=== PATIENT | female | born 1950 | race Caucasian/White ===

== ENCOUNTER 2018-06-18 22:33 | Observation (INO) | payer MEDICARE ==
[~2018-06-18] VITALS: Ht 162.6 cm; Wt 85.8 kg
[2018-06-18] MEDS ORDERED: ASPIRIN 81 MG TABLET CHEW PO ONE (23:00)
[2018-06-18 23:04] LABS: MEAN CORPUSCULAR HEMOGLOBIN 21.2 pg (27.0-34.8); MEAN CORPUSCULAR HGB CONC 31.4 g/dL (32.4-35.8); MEAN CORPUSCULAR VOLUME 67.4 fL (80-100); MEAN PLATELET VOLUME 7.4 fL (7.4-10.4); PLATELET COUNT 555 x10^3/uL (130-400); RED BLOOD COUNT 4.41 x10^6/uL (3.82-5.3); RED CELL DISTRIBUTION WIDTH 20.2 % (9.6-15.2)
[2018-06-18 23:17] LABS: ALANINE AMINOTRANSFERASE 24 U/L (12-78); ALBUMIN 3.5 g/dL (3.4-5.0); ANION GAP 8 mmol/L (5-15); CALCIUM 10.3 mg/dL (8.5-10.1); CHLORIDE 105 mmol/L (98-107)
[2018-06-18 23:21] LABS: ALKALINE PHOSPHATASE 99 U/L (45-117); BILIRUBIN,TOTAL 0.3 mg/dL (0.2-1.0); TOTAL PROTEIN 7.3 g/dL (6.4-8.2); TROPONIN I < 0.015 ng/mL (0.000-0.045)
[2018-06-18] MEDS ORDERED: ASPIRIN 81 MG TABLET CHEW ONE (23:22)
[2018-06-18 23:30] LABS: BASOPHILS # (AUTO) 0.09 x10^3/uL (0-0.1); BASOPHILS % (AUTO) 1 % (0-1); EOSINOPHILS # (AUTO) 0.32 x10^3/uL (0-0.4); EOSINOPHILS % (AUTO) 3 % (1-7); LYMPHOCYTES % (AUTO) 24 % (22-44); MD SCAN; MONOCYTES # (AUTO) 1.65 x10^3/uL (0.2-0.8); MONOCYTES % (AUTO) 13 % (2-9); NEUTROPHILS # (AUTO) 7.85 x10^3/uL (1.8-6.8); NEUTROPHILS % (AUTO) 60 % (42-75)
[2018-06-18] MEDS ORDERED: HYDR25TA6 PO (23:31)
[2018-06-18] MEDS ORDERED: PARO20TA4 PO (23:31)
[2018-06-18] MEDS ORDERED: ALBU8.5H8 INH (23:31)
[2018-06-18] MEDS ORDERED: PANT40TA5 PO (23:31)
[2018-06-18] MEDS ORDERED: SUMA100T4 PO (23:31)
[2018-06-18] MEDS ORDERED: AMLO5TAB7 PO (23:31)
[2018-06-19] MEDS ORDERED: ONDANSETRON ODT 4 MG PO PRN (00:30)
[2018-06-19] MEDS ORDERED: hydrALAzine 20 MG/ML, 1ML IVPush PRN (00:30)
[2018-06-19] MEDS ORDERED: ENOXAPARIN 40 MG/0.4 ML SQ SCH (00:30)
[2018-06-19] MEDS ORDERED: TEMAZEPAM 15 MG CAPSULE PO PRN (00:30)
[2018-06-19] MEDS ORDERED: DOCUSATE 100 MG CAPSULE PO PRN (00:30)
[2018-06-19] MEDS ORDERED: LIDODERM 5% PATCH TD PRN (00:30)
[2018-06-19] MEDS ORDERED: KETOROLAC 30 MG/1 ML IV PRN (00:30)
[2018-06-19] MEDS ORDERED: NITROGLYCERIN 0.4 MG BOTTLE (25 TABS) SL PRN (00:30)
[2018-06-19] MEDS ORDERED: ACETAMINOPHEN 325 MG TABLET PO PRN (00:30)
[2018-06-19 01:01] VITALS: BP 126/90
[2018-06-19 01:28] VITALS: BP 126/90
[2018-06-19 05:46] LABS: TROPONIN I < 0.015 ng/mL (0.000-0.045)
[2018-06-19 08:00] VITALS: BP 100/70
[2018-06-19] MEDS ORDERED: PANTOPROZOLE 40MG TABLET PO SCH (09:00)
[2018-06-19] MEDS ORDERED: AMLODIPINE 5 MG TABLET PO SCH (09:00)
[2018-06-19] MEDS ORDERED: PAROXETINE 20 MG TABLET PO SCH (09:00)
[2018-06-19] MEDS ORDERED: HYDROCHLOROTHIAZIDE 25 MG TABLET PO SCH (09:00)
[2018-06-19] MEDS ORDERED: REGADENOSON 0.4 MG/5 ML SYRINGE ONE (09:42)
[2018-06-19 12:05] VITALS: BP 103/72
[2018-06-19 12:27] LABS: BASOPHILS # (AUTO) 0.07 x10^3/uL (0-0.1); BASOPHILS % (AUTO) 1 % (0-1); EOSINOPHILS # (AUTO) 0.14 x10^3/uL (0-0.4); EOSINOPHILS % (AUTO) 2 % (1-7); LYMPHOCYTES # (AUTO) 2.13 x10^3/uL (1-3.4); LYMPHOCYTES % (AUTO) 24 % (22-44); MD NO; MEAN CORPUSCULAR HEMOGLOBIN 21.1 pg (27.0-34.8); MEAN CORPUSCULAR HGB CONC 31.1 g/dL (32.4-35.8); MEAN CORPUSCULAR VOLUME 67.7 fL (80-100); MEAN PLATELET VOLUME 7.5 fL (7.4-10.4); MONOCYTES # (AUTO) 1.43 x10^3/uL (0.2-0.8); MONOCYTES % (AUTO) 16 % (2-9); NEUTROPHILS # (AUTO) 5.21 x10^3/uL (1.8-6.8); NEUTROPHILS % (AUTO) 58 % (42-75); PLATELET COUNT 532 x10^3/uL (130-400); RED BLOOD COUNT 4.35 x10^6/uL (3.82-5.3)
[2018-06-19 12:34] LABS: CHLORIDE 105 mmol/L (98-107)
[2018-06-19 12:46] LABS: % IRON SATURATION 5 % (20-55); ANION GAP 8 mmol/L (5-15); CALCIUM 9.4 mg/dL (8.5-10.1); CREATININE 0.85 mg/dL (0.55-1.02); IRON LEVEL 22 mcg/dL (50-170); TOTAL IRON BINDING CAPACITY 452 mcg/dL (250-450); TRANSFERRIN 290 mg/dL (200-360); TROPONIN I < 0.015 ng/mL (0.000-0.045)
[2018-06-19 14:05] VITALS: BP 105/72
[2018-06-19 14:18] LABS: HCT (SEDRATE) 29.5 % (34.6-47.8)
== END 2018-06-19 15:15 | disposition left against medical advice (07) ==
LOC: ED 23:11 → INTOOBSV 06-19 00:07 → EDIP 06-19 00:07 → 4WST 06-19 00:53
PROVIDERS: ADMIT Internal Medicine; ATTEND Internal Medicine
DX: R07.89 Other chest pain (principal); K21.9 Gastro-esophageal reflux disease without esophagitis; F33.0 Major depressive disorder, recurrent, mild; D50.9 Iron deficiency anemia, unspecified; E66.01 Morbid (severe) obesity due to excess calories; I10 Essential (primary) hypertension; J44.9 Chronic obstructive pulmonary disease, unspecified; K44.9 Diaphragmatic hernia without obstruction or gangrene; R73.03 Prediabetes; E87.6 Hypokalemia; Z53.21 Procedure and treatment not carried out due to patient leaving prior to being seen by health care provider; Z68.32 Body mass index [BMI] 32.0-32.9, adult; Z80.0 Family history of malignant neoplasm of digestive organs; Z88.7 Allergy status to serum and vaccine
CPT/HCPCS: 36415; 71045; 78452; 80048; 80053; 82728; 83540; 83550; 83735; 83880; 84466; 84484; 85025; 85651; 86140; 93005; 93017; 93306; 96372; 99285; A9502; C9898; G0378; J1650; J2785

== ENCOUNTER 2020-04-22 19:41 | Emergency (ER) | payer MEDICARE ==
[~2020-04-22] VITALS: Ht 162.6 cm; Wt 97.0 kg
[~2020-04-22 19:41] MED LIST: ALBU8.5H8 INH; AMLO-150 PO; HYDR25TA6 PO; PANT40TA6 PO; PARO20TA4 PO; SUMA100T4 PO
[2020-04-22 19:47] VITALS: BP 139/73
--- NOTE | 2020-04-22 20:05 | NUR ---
PT RESTING IN GOWN IN [facility]. PT ATTACHED TO VS MONITORS. VSS AT THIS TIME. AWAITING ERP. PT EDUCATED ON ER PROCESS AND VERBALIZES UNDERSTANDING. PT TALKING IN COMPLETE SENTENCES WITH NO UPPER AIRWAY IMPAIRMENT NOTED AT THIS TIME.
--- NOTE | 2020-04-22 21:28 | NUR ---
Jeffery from [facility] called in per Dr. Hooker.
[2020-04-22] MEDS ORDERED: PROPOFOL 10 MG/ML, 20ML ONE (22:09)
[2020-04-22] MEDS ORDERED: FENTANYL PF 100 MCG/2ML ONE (22:16)
--- NOTE | 2020-04-22 23:37 | NUR ---
Note donayue in [facility] - 04/22/20 at 2338 by LOWELL PT RECEIVED A TOTAL OF 360 MG OF PROPOFOL DURING PROCEDURE DUE TO COMPLICATIONS OF FB REMOVAL. PT TOLERATED PROCEDURE WELL. PT RECOVERING IN [facility] AND IS AWAKE AND ORIENTED X 4. PT ATTACHED TO VS AND CARDIAC MONITORS. VSS. PT HAS CALL LIGHT WITHIN REACH AT THIS TIME.
--- NOTE | 2020-04-22 23:38 | NUR ---
PT RECEIVED A TOTAL OF 360 MG OF PROPOFOL DURING PROCEDURE DUE TO COMPLICATIONS OF FB REMOVAL. PT TOLERATED PROCEDURE WELL. PT RECOVERING IN [facility] AND IS AWAKE AND ORIENTED X 4. PT ATTACHED TO VS AND CARDIAC MONITORS. VSS. PT HAS CALL LIGHT WITHIN REACH AT THIS TIME.
--- NOTE | 2020-04-22 23:40 | NUR ---
Assist RN: Patient recovered fully. Patient vitals stable without O2. AAOx4, GCS 15. Patient ambulatory with a steady gait. Discharge instructions given. All questions and concerns addressed. Belongings with patient.
== END 2020-04-22 23:43 | disposition home or self-care (01) ==
LOC: ED 23:30
DX: T18.128A Food in esophagus causing other injury, initial encounter (principal); I10 Essential (primary) hypertension; J45.909 Unspecified asthma, uncomplicated; K21.9 Gastro-esophageal reflux disease without esophagitis; X58.XXXA Exposure to other specified factors, initial encounter; Y93.89 Activity, other specified; Y92.89 Other specified places as the place of occurrence of the external cause; Y99.8 Other external cause status
CPT/HCPCS: 99152; 99153; 99285

== ENCOUNTER → 2020-07-23 | Outpatient (CLI) | payer MEDICARE ==
[~2020-07-23] MED LIST changes: +ARIP2TAB2 PO; +CELEBREX PO; +OXYCONTIN PO; +PLAQUENIL PO; +[UNRECOGNIZED DRUG - OTHER]; +iron PO; +vitamin C PO
[2020-07-23 17:07] LABS: BASOPHILS % (AUTO) 1 % (0-1); EOSINOPHILS % (AUTO) 3 % (1-7); LYMPHOCYTES % (AUTO) 33 % (22-44); MEAN CORPUSCULAR HEMOGLOBIN 27.9 pg (27.0-34.8); MEAN CORPUSCULAR HGB CONC 31.8 g/dL (32.4-35.8); MEAN PLATELET VOLUME 7.5 fL (7.4-10.4); MONOCYTES % (AUTO) 16 % (2-9); NEUTROPHILS % (AUTO) 48 % (42-75); PLATELET COUNT 353 x10^3/uL (130-400); RED BLOOD COUNT 4.59 x10^6/uL (3.82-5.3); RED CELL DISTRIBUTION WIDTH 17.5 % (9.6-15.2)
[2020-07-23 17:11] LABS: MD NO
[2020-07-23 17:13] LABS: ALANINE AMINOTRANSFERASE 20 U/L (12-78); ALBUMIN 3.9 g/dL (3.4-5.0); ANION GAP 5 mmol/L (5-15); CALCIUM 9.8 mg/dL (8.5-10.1); CHLORIDE 98 mmol/L (98-107)
[2020-07-23 17:20] LABS: ALKALINE PHOSPHATASE 129 U/L (45-117); BILIRUBIN,TOTAL 0.5 mg/dL (0.2-1.0); CREATININE 0.77 mg/dL (0.55-1.02); TOTAL PROTEIN 7.4 g/dL (6.4-8.2)
== END | disposition home or self-care (01) ==
LOC: STAR 15:13
PROVIDERS: ATTEND Orthopaedic Surgery
DX: Z01.818 Encounter for other preprocedural examination (principal); Z20.828 Contact with and (suspected) exposure to other viral communicable diseases; M17.11 Unilateral primary osteoarthritis, right knee
CPT/HCPCS: 36415; 80053; 85025; 87081; 87635; 93005

== ENCOUNTER 2020-07-26 14:39 | Emergency (ER) | payer MEDICARE ==
[~2020-07-26] VITALS: Ht 162.6 cm; Wt 94.9 kg
[~2020-07-26 14:39] MED LIST changes: -CELEBREX PO; -OXYCONTIN PO; -PLAQUENIL PO
[2020-07-26] MEDS ORDERED: SODIUM CHLORIDE FLUSH 10ML SYR IVF ONE (15:00)
--- NOTE | 2020-07-26 15:01 | NUR ---
PT SITTING UP IN BED WATCHING TELEVISION. NAD NOTED AT THIS TIME. RESPIRATIONS EVEN AND UNLABORED ON RA. SIDE RAILS UP, CALL LIGHT IN REACH. AWAITING FURTHER ORDERS.
[2020-07-26 15:14] LABS: BASOPHILS % (AUTO) 1 % (0-1); EOSINOPHILS % (AUTO) 4 % (1-7); LYMPHOCYTES % (AUTO) 27 % (22-44); MEAN CORPUSCULAR HEMOGLOBIN 28.8 pg (27.0-34.8); MEAN CORPUSCULAR HGB CONC 32.8 g/dL (32.4-35.8); MEAN PLATELET VOLUME 7.8 fL (7.4-10.4); MONOCYTES % (AUTO) 14 % (2-9); NEUTROPHILS % (AUTO) 54 % (42-75); PLATELET COUNT 349 x10^3/uL (130-400); RED BLOOD COUNT 4.53 x10^6/uL (3.82-5.3); RED CELL DISTRIBUTION WIDTH 17.2 % (9.6-15.2)
[2020-07-26 15:24] LABS: ALBUMIN 3.7 g/dL (3.4-5.0); ANION GAP 7 mmol/L (5-15); CALCIUM 10.1 mg/dL (8.5-10.1); CHLORIDE 104 mmol/L (98-107); CREATININE 0.79 mg/dL (0.55-1.02)
[2020-07-26 15:35] LABS: MD SCAN
--- NOTE | 2020-07-26 15:58 | NUR ---
UPON ENTRY TO ROOM FOR MED ADMINISTRATION AND DC, PT REQUESTS CELL PHONE TO MAKE IMMEDIATE PHONE CALL.
[2020-07-26] MEDS ORDERED: POTASSIUM CHLORIDE 10% 40 MEQ/30 ML UDC PO ONE (16:00)
[2020-07-26] MEDS ORDERED: POTASSIUM CHLORIDE 20 MEQ PACKET ONE (16:03)
[2020-07-26 16:19] VITALS: BP 139/71
[2020-07-27] MEDS ORDERED: CELEBREX PO (06:12)
[2020-07-27] MEDS ORDERED: OXYCONTIN PO (06:12)
[2020-07-27] MEDS ORDERED: PLAQUENIL PO (06:37)
== END 2020-07-26 16:36 | disposition home or self-care (01) ==
LOC: ED 15:22
DX: E87.6 Hypokalemia (principal); I44.0 Atrioventricular block, first degree; I10 Essential (primary) hypertension; J45.909 Unspecified asthma, uncomplicated
CPT/HCPCS: 36415; 80048; 82040; 83735; 85025; 93005; 99284; 99285

== ENCOUNTER 2020-07-27 05:21 | Observation (INO) | payer MEDICARE ==
[~2020-07-27] VITALS: Ht 162.6 cm; Wt 93.5 kg
[2020-07-27] MEDS ORDERED: CELEBREX PO (06:12)
[2020-07-27] MEDS ORDERED: OXYCONTIN PO (06:12)
[2020-07-27] MEDS ORDERED: CHLORHEXIDINE 15 ML UDC MM ONE (06:30)
[2020-07-27] MEDS ORDERED: TRANEXAMIC ACID 100 MG/ML, 10ML ONE (06:35)
[2020-07-27] MEDS ORDERED: KETOROLAC 60 MG/2 ML ONE (06:35)
[2020-07-27] MEDS ORDERED: SODIUM CHLORIDE 0.9% 50 ML ONE (06:36)
[2020-07-27] MEDS ORDERED: EPINEPHRINE 1 MG/ML, 1ML ONE (06:36)
[2020-07-27] MEDS ORDERED: VANCOMYCIN 1,000 MG ONE (06:36)
[2020-07-27] MEDS ORDERED: ROPIvacaine/PF 0.2%, 20 ML ONE (06:36)
[2020-07-27] MEDS ORDERED: morphine SULFATE/PF 1 MG/ML, 10ML ONE (06:36)
[2020-07-27] MEDS ORDERED: METHYLENE BLUE 50 MG/10 ML AMP ONE (06:36)
[2020-07-27] MEDS ORDERED: PLAQUENIL PO (06:37)
[2020-07-27] MEDS ORDERED: ACETAMINOPHEN 500 MG TABLET ONE (06:42)
[2020-07-27 06:54] LABS: ANION GAP 6 mmol/L (5-15); CALCIUM 9.8 mg/dL (8.5-10.1); CHLORIDE 109 mmol/L (98-107); CREATININE 0.78 mg/dL (0.55-1.02)
[2020-07-27] MEDS ORDERED: MIDAZOLAM 1 MG/ML, 2ML ONE (06:56)
[2020-07-27] MEDS ORDERED: FENTANYL PF 250 MCG/5ML ONE (06:56)
[2020-07-27] MEDS ORDERED: ACETAMINOPHEN 500 MG TABLET PO ONE (07:00)
[2020-07-27] MEDS ORDERED: LACTATED RINGERS 1,000 ML IV SCH (07:00)
[2020-07-27] MEDS ORDERED: MEPERIDINE/PF 25MG/0.5ML IVPush PRN (08:30)
[2020-07-27] MEDS ORDERED: hydrALAzine 20 MG/ML, 1ML IV PRN (08:30)
[2020-07-27] MEDS ORDERED: OXYcodone 5 MG/5 ML ORAL.SOL UDC PO PRN (08:30)
[2020-07-27] MEDS ORDERED: HYDROmorphone 2 MG/ML, 1ML IVPush PRN (08:30)
[2020-07-27] MEDS ORDERED: LABETALOL 5MG/ML, 20ML IV PRN (08:30)
[2020-07-27] MEDS ORDERED: KETOROLAC 30 MG/1 ML IV PRN (08:30)
[2020-07-27] MEDS ORDERED: ALBUTEROL SULFATE 2.5 MG/3 ML NPPB PRN (08:30)
[2020-07-27] MEDS ORDERED: DIAZEPAM 5 MG/ML, 2ML IVPush PRN (08:30)
[2020-07-27] MEDS ORDERED: ACETAMINOPHEN 325 MG TABLET PO PRN (08:30)
[2020-07-27] MEDS ORDERED: PROMETHAZINE 25 MG/ML, 1ML IV PRN (08:30)
[2020-07-27] MEDS ORDERED: FENTANYL PF 100 MCG/2ML ONE (09:20)
[2020-07-27] MEDS: FENTANYL PF 100 MCG/2ML IV PRN ×3 (09:23→09:44)
[2020-07-27] MEDS ORDERED: OXYcodone 5 MG/5 ML ORAL.SOL UDC ONE (09:35)
[2020-07-27] MEDS ORDERED: KETOROLAC 30 MG/1 ML ONE (09:45)
[2020-07-27] MEDS ORDERED: NEOSTIGMINE 1 MG/ML, 10ML ONE (09:46)
[2020-07-27] MEDS ORDERED: DEXAMETHASONE 4 MG/ML, 1ML ONE (09:46)
[2020-07-27] MEDS ORDERED: PROPOFOL 10 MG/ML, 20ML ONE (09:46)
[2020-07-27] MEDS ORDERED: ROCURONIUM 10MG/ML,5ML ONE (09:46)
[2020-07-27] MEDS ORDERED: ONDANSETRON 2MG/ML, 2ML ONE (09:46)
[2020-07-27] MEDS ORDERED: SUCCINYLCHOLINE 20 MG/ML, 10ML ONE (09:46)
[2020-07-27] MEDS ORDERED: GLYCOPYRROLATE 0.2MG/1ML, 5ML ONE (09:46)
[2020-07-27] MEDS ORDERED: CEFAZOLIN 1,000 MG ONE (09:46)
[2020-07-27] MEDS ORDERED: ONDANSETRON 2MG/ML, 2ML IVPush PRN (11:00)
[2020-07-27] MEDS ORDERED: DIPHENHYDRAMINE 25 MG CAPSULE PO PRN (11:00)
[2020-07-27] MEDS: ACETAMINOPHEN 500 MG TABLET PO SCH ×3 (11:46→23:16)
[2020-07-27] MEDS ORDERED: SUMATRIPTAN 100 MG TABLET PO PRN (12:00)
[2020-07-27] MEDS: POTASSIUM CHLORIDE 10 MEQ in D5%-0.45% NACL 1,000 ML IV SCH (13:49)
[2020-07-27] MEDS: CEFAZOLIN PMX 1GM/50ML 50 ML IVPB SCH ×2 (15:43→23:16)
[2020-07-27] MEDS: KETOROLAC 30 MG/1 ML IVPush SCH (17:09)
[2020-07-27] MEDS: PANTOPRAZOLE 40MG TABLET PO SCH (17:10)
[2020-07-27] MEDS: ASPIRIN 81 MG TABLET EC PO SCH (17:10)
[2020-07-27 17:27] VITALS: BP 132/77
[2020-07-27 19:46] VITALS: BP 118/77
[2020-07-27] MEDS ORDERED: GABAPENTIN 300 MG CAPSULE PO SCH (21:00)
[2020-07-28 00:41] VITALS: BP 111/73
[2020-07-28] MEDS: KETOROLAC 30 MG/1 ML IVPush SCH (02:43)
[2020-07-28 04:54] VITALS: BP 115/70
[2020-07-28] MEDS: ACETAMINOPHEN 500 MG TABLET PO SCH ×2 (05:40→12:57)
[2020-07-28] MEDS: ASPIRIN 81 MG TABLET EC PO SCH (05:40)
[2020-07-28] MEDS: POTASSIUM CHLORIDE 10 MEQ in D5%-0.45% NACL 1,000 ML IV SCH (05:40)
[2020-07-28] MEDS: PANTOPRAZOLE 40MG TABLET PO SCH (05:40)
[2020-07-28 06:49] VITALS: BP 110/74
[2020-07-28] MEDS ORDERED: ALBUTEROL HFA 90 MCG/SPRAY INH SCH (09:00)
[2020-07-28] MEDS ORDERED: HYDROXYCHLOROQUINE 200 MG TABLET PO SCH (09:00)
[2020-07-28] MEDS ORDERED: HYDROCHLOROTHIAZIDE 25 MG TABLET PO SCH (09:00)
[2020-07-28] MEDS ORDERED: PAROXETINE 20 MG TABLET PO SCH (09:00)
[2020-07-28] MEDS ORDERED: AMLODIPINE 5 MG TABLET PO SCH (09:00)
[2020-07-28] MEDS ORDERED: ARIPIPRAZOLE 2 MG TABLET PO SCH (09:00)
[2020-07-28] MEDS: OXYcodone IR 5MG TABLET PO PRN ×2 (10:21→14:35)
[2020-07-28 13:06] VITALS: BP 111/71
== END 2020-07-28 15:04 | disposition home or self-care (01) ==
LOC: OUT 05:21 → 4NE 10:22 → OUT 10:50 → DCLOUNGE 07-28 14:43
PROVIDERS: ADMIT Orthopaedic Surgery; ATTEND Orthopaedic Surgery
DX: M17.11 Unilateral primary osteoarthritis, right knee (principal); M21.061 Valgus deformity, not elsewhere classified, right knee; E66.9 Obesity, unspecified; I10 Essential (primary) hypertension; E78.5 Hyperlipidemia, unspecified; Z79.899 Other long term (current) drug therapy; Z96.651 Presence of right artificial knee joint
CPT/HCPCS: 20680; 27447; 36415; 80048; 94640; 96361; 96365; 96366; 96375; 96376; 97162; C1713; C1776; G0378; J0171; J0330; J0690; J1100; J1885; J2250; J2274; J2405; J2704; J2795; J3010; J3370; J3480; J7120; Q9968; J2710

== ENCOUNTER 2021-03-28 17:49 | Emergency (ER) | payer MEDICARE ==
[~2021-03-28] VITALS: Ht 162.6 cm; Wt 100.1 kg
[~2021-03-28 17:49] MED LIST changes: +CELEBREX PO; +OXYCONTIN PO; +PLAQUENIL PO
--- NOTE | 2021-03-28 18:51 | NUR ---
REPORT FROM JAY STEEL
[2021-03-28 18:53] LABS: BASOPHILS % (AUTO) 1 % (0-1); EOSINOPHILS % (AUTO) 2 % (1-7); LYMPHOCYTES % (AUTO) 22 % (22-44); MEAN CORPUSCULAR HEMOGLOBIN 29.2 pg (27.0-34.8); MEAN PLATELET VOLUME 7.7 fL (7.4-10.4); MONOCYTES % (AUTO) 14 % (2-9); NEUTROPHILS % (AUTO) 62 % (42-75); PLATELET COUNT 378 x10^3/uL (130-400); RED BLOOD COUNT 4.61 x10^6/uL (3.82-5.3); RED CELL DISTRIBUTION WIDTH 16.8 % (9.6-15.2)
[2021-03-28 18:58] LABS: ALBUMIN 3.7 g/dL (3.4-5.0); ANION GAP 9 mmol/L (5-15); CHLORIDE 102 mmol/L (98-107)
[2021-03-28 19:10] LABS: ALANINE AMINOTRANSFERASE 29 U/L (12-78); ALKALINE PHOSPHATASE 131 U/L (45-117); BILIRUBIN,TOTAL 0.4 mg/dL (0.2-1.0); CREATININE 1.57 mg/dL (0.55-1.02); TOTAL PROTEIN 7.5 g/dL (6.4-8.2)
[2021-03-28 19:17] VITALS: BP 127/77
[2021-03-28] MEDS ORDERED: AMOXICILLIN 500 MG CAPSULE PO ONE (21:30)
[2021-03-28] MEDS ORDERED: AMOXICILLIN 500 MG CAPSULE ONE (21:37)
== END 2021-03-28 21:55 | disposition home or self-care (01) ==
LOC: ED 21:40
DX: J32.8 Other chronic sinusitis (principal); B96.89 Other specified bacterial agents as the cause of diseases classified elsewhere; R10.31 Right lower quadrant pain; I10 Essential (primary) hypertension; K21.9 Gastro-esophageal reflux disease without esophagitis; J45.909 Unspecified asthma, uncomplicated; M19.90 Unspecified osteoarthritis, unspecified site
CPT/HCPCS: 36415; 80053; 84439; 84443; 85025; 99283